=== PATIENT | female | born 1965 | race African-American/Black ===

== ENCOUNTER 2017-07-01 18:18 | Emergency (ER) | payer SELFPAY ==
[2017-07-01] MEDS ORDERED: diphenhydrAMINE 25 MG CAP ONE (19:35)
[2017-07-01] MEDS ORDERED: Famotidine 20 MG TAB ONE (19:35)
[2017-07-01] MEDS ORDERED: predniSONE 20 MG TAB ONE (19:35)
== END 2017-07-01 20:48 | disposition home or self-care (01) ==
LOC: ERS 18:18
DX: L50.0 Allergic urticaria (principal); J44.9 Chronic obstructive pulmonary disease, unspecified; F31.9 Bipolar disorder, unspecified; F17.210 Nicotine dependence, cigarettes, uncomplicated
CPT/HCPCS: 99283; J7506

== ENCOUNTER 2021-04-26 13:46 | Emergency (ER) | payer SELFPAY | END 2021-04-26 14:55 | disposition home or self-care (01) | LOC: ERS 13:46 | DX: S93.401A Sprain of unspecified ligament of right ankle, initial encounter (principal); J44.9 Chronic obstructive pulmonary disease, unspecified; F17.210 Nicotine dependence, cigarettes, uncomplicated; X50.9XXA Other and unspecified overexertion or strenuous movements or postures, initial encounter ==

== ENCOUNTER 2023-10-27 18:10 | Emergency (ER) | payer BC, SELFPAY ==
[2023-10-27] MEDS ORDERED: Ketorolac Tromethamine 30 MG (1 mL) VIAL ONE (20:21)
== END 2023-10-27 20:40 | disposition home or self-care (01) ==
LOC: ERS 18:10
DX: N63.10 Unspecified lump in the right breast, unspecified quadrant (principal); F17.210 Nicotine dependence, cigarettes, uncomplicated
CPT/HCPCS: 96372; J1885

== ENCOUNTER 2024-11-18 00:16 | Emergency (ER) | payer BC ==
[2024-11-18] MEDS ORDERED: Ketorolac Tromethamine 30 MG (1 mL) VIAL ONE (02:32)
[2024-11-18] MEDS ORDERED: Sulfameth/Trimethoprim DS 800-160mg TAB ONE (02:32)
[2024-11-18] MEDS ORDERED: HYDROcodone/Acetaminophen 5/325 mg Tablet ONE (02:33)
== END 2024-11-18 03:06 | disposition home or self-care (01) ==
LOC: ERS 00:16
DX: M79.644 Pain in right finger(s) (principal); J44.9 Chronic obstructive pulmonary disease, unspecified; F17.210 Nicotine dependence, cigarettes, uncomplicated
CPT/HCPCS: 96372; 99283; J1885

== ENCOUNTER 2024-11-21 09:11 | Emergency (ER) | payer BC ==
[2024-11-21] MEDS ORDERED: Ketorolac Tromethamine 30 MG (1 mL) VIAL ONE (10:56)
== END 2024-11-21 11:07 | disposition home or self-care (01) ==
LOC: ERS 09:11
DX: M79.644 Pain in right finger(s) (principal); J44.9 Chronic obstructive pulmonary disease, unspecified; F17.210 Nicotine dependence, cigarettes, uncomplicated
CPT/HCPCS: 96372; 99283; J1885